=== PATIENT | male | born 1965 ===

== ENCOUNTER 2024-05-22 13:06 | Inpatient (IN) | payer MEDICARE, MEDICAID, SELFPAY ==
[2024-05-22 13:20] VITALS: BP 140/90; BP 166/100; PULSE 100; PULSE 95; RESP 16; TEMP 36.9; O2SAT 93; O2SAT 96; BMI 29.7
[2024-05-22 13:41] LABS: Appearance Urine Clear; Color Urine Yellow; Glucose Urine UA Negative (Negative); Leukocyte Esterase Urine Negative (Negative); Nitrite Urine Negative (Negative); Specific Gravity - Urine <= 1.005 (1.005-1.025); Urine Blood Negative (Negative); Urine Ketones Trace mg/dL (Negative); Urine Protein Negative (Neg-Trace)
[2024-05-22 13:50] LABS: Amphetamine Screen Urine Not Detected (Not Detect); Barbiturates, Urine Not Detected (Not Detect); Benzodiazepines Screen Urine Not Detected (Not Detect); Buprenorphine Scr Not Detected (Not Detect); Cannabinoid Screen Urine POSITIVE (Not Detect); Cocaine Screen Urine Not Detected (Not Detect); Fentanyl, urine Not Detected (Not Detect); Methadone Screen, Urine Not Detected (Not Detect); Opiate Screen Urine Not Detected (Not Detect); Oxycodone Screen Urine Not Detected (Not Detect); Phencyclidine Screen Urine Not Detected (Not Detect)
[2024-05-22 13:57] LABS: MANUAL DIFF FLAG NO
[2024-05-22] MEDS: PHENobarbitaL sodium 130 MG/ML IM ONCE 340 MG IM (13:57)
[2024-05-22 13:59] LABS: Basophils Absolute Auto 0.1 X10*3/uL (0.0-0.2); Eosinophils Absolute Auto 0.1 X10*3/uL (0.0-0.4); Eosinophils Percent Auto 1.7 % (0-4); Hematocrit 48.8 % (42.0-52.0); Hemoglobin 17.5 g/dl (14.0-18.0); Imm Gran Abs Auto 0.04 X10*3/uL (0.00-0.03); Imm Gran Pct Auto 0.6 % (0.0-0.4); Lymphocytes Absolute Auto 2.7 X10*3/uL (1.2-4.9); Lymphocytes Percent Auto 42.8 % (20-40); Mean Corpuscular HGB Conc 35.9 g/dl (31.0-36.0); Mean Corpuscular Hemoglobin 35.6 pg (27.0-33.0); Mean Corpuscular Volume 99.4 fL (80.0-98.0); Mean Platelet Volume 9.4 fL (9.4-12.4); Monocytes Absolute Auto 0.8 X10*3/uL (0.1-1.2); Neutrophils Absolute Auto 2.6 x10*3/uL (2.0-8.3); Neutrophils Percent Auto 41.9 % (45-73); Platelet Count 185 X10*3/uL (160-400); Red Blood Count 4.91 X10*6/uL (4.60-5.80); Red Cell Distribution Width 13.5 % (11.0-16.0); White Blood Count 6.3 X10*3/uL (4.8-10.8)
[2024-05-22 14:00] VITALS: BP 137/87; PULSE 93; RESP 24; TEMP 37; O2SAT 95
--- NOTE | 2024-05-22 14:21 | ED.PSYCH ---
HPI - Psych General Chief Complaint: ETOH/Substance Use Stated Complaint: SI STATEMENTS TO TILE TRIMMER TO TAKE ALL MEDS,ETOH USE Time Seen by Provider: 05/22/24 13:07 Source: patient Mode of arrival: ambulatory Limitations: no limitations History of Present Illness ED Provider: Di Peraza APRN HPI Narrative: 58-year-old male with a history of alcohol use disorder presents to the ER with complaints of suicidal thoughts with plans to overdose on his home medications. Patient reports he drinks 10-14 nips a day. He had for nips this morning prior to arrival. He denies any additional substance use. He reports about 7 days ago he did have a fall with a head strike and was seen at [facility]. He had a CT scan of his head at that time. No HI. No hallucinations. Related Data Allergies Allergy/AdvReac Type Severity Reaction Status Date / Time No Known Allergies Allergy Verified 05/22/24 13:23 Review of Systems Review of Systems: Yes all other systems are reviewed and are negative Constitutional: Constitutional: Reports no additional constitutional complaints, Denies body ache(s), Denies chills, Denies fever(s), Denies headache(s) and Denies weakness Eyes: Eyes: Reports no additional eye complaints and Denies change in vision ENT: Reports system reviewed and no additional complaints, except as documented, Denies dizziness, Denies headache(s), Denies nasal congestion, Denies nasal discharge and Denies neck pain Cardiovascular: Cardiovascular: Reports no additional cardiovascular complaints, Denies chest pain, Denies leg edema and Denies dyspnea Respiratory: Respiratory: Reports no additional respiratory complaints, Denies cough and Denies dyspnea Gastrointestinal: Gastrointestinal: Reports no additional gastrointestinal complaints, Denies abdominal pain, Denies diarrhea, Denies nausea and Denies vomiting Genitourinary: Genitourinary: Denies urinary incontinence Musculoskeletal: Musculoskeletal: Reports no additional musculoskeletal complaints, Denies back pain, Denies arthralgias, Denies joint swelling, Denies neck pain, Denies numbness and Denies tingling Integumentary/Breasts: Skin/Breast: Reports system reviewed and no additional complaints, except as docu and Denies rash Neurologic: Reports system reviewed and no additional complaints, except as documented, Denies Abnormal speech present, Denies dizziness, Denies headache(s), Denies numbness, Denies tingling and Denies weakness Psychiatric: Psychiatric: Denies homicidal ideation and Reports suicidal ideation [facility] Past Medical History Attestation statement: The following information was validated with the patient. Source: old records reviewed and nursing notes reviewed Social History Social History Alcohol intake: current Alcohol intake frequency: 3 or more drinks per day Alcohol type: hard liquor Smoked in Last 30 Days: Yes Use of substances other than those prescribed or required for medical reasons: Yes Substance Use Type: Marijuana Substance Use Frequency: Weekly Last Used Substance: Hours (ago) Any prior treatment program specific to substance use: No Advance Directives: No Advance Directives Information Provided: No Physical Exam Vital Signs: Vital Signs: Last Vital Signs Temp 98.6 F 05/22/24 14:00 Pulse 93 05/22/24 14:00 Resp 24 H 05/22/24 14:00 BP 137/87 05/22/24 14:00 Pulse Ox 95 05/22/24 14:00 O2 Del Method Room Air 05/22/24 14:00 BMI result Body Mass Index 29.7 Const: General: cooperative, healthy appearing, comfortable and no acute distress Orientation/consciousness: patient oriented x3 Limitations: no limitations HEENT: Head: Yes normal to inspection, No Carpenter's sign and No raccoon eyes Ears: hearing grossly normal bilaterally and TM's normal bilaterally General nose exam: Normal external nose present Face and sinus: Yes normal facial exam Mouth: Normal oral and palatal mucosa present Throat: Yes posterior oropharynx normal Eyes: General: appearance normal, both eyes and all related structures Pupils: Equal, round and reactive pupils present Neck: Neck: Yes normal visual inspection and Yes full ROM Chest: Chest palpation & inspection: normal inspection of the chest Resp: Effort & Inspection: normal respiratory effort Auscultation: clear to auscultation bilaterally Cardio: Rate: regular rate Rhythm: regular rhythm Peripheral pulses: Peripheral pulses 2+ throughout GI: Inspection: Yes normal to inspection Palpation (GI): Soft to palpation and nontender Auscultation: normal bowel sounds Back/Spine/Pelvis: Thoracic/Lumbar Spine: thoracic and lumbar spine normal to inspection Skin: General skin exam: no rashes or lesions noted Neuro: General: patient oriented x3, moves all extremities, no focal motor deficits and normal sensation to monofilament Cranial nerves: Yes CN's II-XII intact bilaterally, Yes Equal, round and reactive pupils present, Yes Bilaterally intact EOM present, Yes Nystagmus not present, Yes Normal facial strength present and Yes Midline tongue present Cognition (Neuro): normal cognition Speech: No Abnormal speech present Gait exam (Neuro): Normal gait present Motor exam (neuro): 5/5 motor strength present throughout Sensory Exam: Normal double simultaneous stimulation for sensation Extrem: General: Yes normal to inspection Course Course Course Narrative: 1400-nursing tells me the patient's initial CIWA was 21. I did order phenobarbital protocol. He reports he has had an admission for alcohol withdrawal but this was many years ago. No history of alcohol withdrawal seizures. He will be brought to the main emergency room to be monitored Reevaluation(s) Reevaluation #1: 1530-CIWA now 3. Nursing will Ctm. Crisis consult placed Medications Administered Discontinued Medications Generic Name Dose Route Start Last Admin Trade Name Freq PRN Reason Stop Dose Admin Phenobarbital Sodium 340 mg 05/22/24 14:00 05/22/24 13:57 Phenobarbital Sodium 130 Mg/Ml Im Once IM 05/22/24 14:01 340 mg ONCE ONE Administration Protocol Medical Decision Making Medical Decision Making [facility] Narrative: 58-year-old male with a history of alcohol use disorder presents to the ER with complaints of suicidal thoughts with plans to overdose on his home medications. Patient reports he drinks 10-14 nips a day. He had for nips this morning prior to arrival. He denies any additional substance use. He reports about 7 days ago he did have a fall with a head strike and was seen at [facility]. He had a CT scan of his head at that time. No HI. No hallucinations. Normal neuro exam with no focal deficits. No concern for acute ingestion or trauma. Vitals are stable. We will get the records from [facility]. Will need CIWA, labs, drug screen Once medically cleared will need a crisis evaluation Differential Diagnosis Differential Diagnoses: The differential diagnosis associated with the presentation includes Alcohol use disorder, depression Admission/Observation Consideration of admission/observation: Escalation of care including admission/observation considered Consult Healthcare Provider Management of the patient was discussed with: Behavioral Health Provider Lab Data [facility] Lab Attestation statement: I reviewed the patient's lab results. 05/22/24 13:49 05/22/24 13:49 Labs: Lab Results 05/22/24 05/22/24 Range/Units 13:31 13:49 WBC 6.3 (4.8-10.8) X10*3/uL RBC 4.91 (4.60-5.80) X10*6/uL Hgb 17.5 (14.0-18.0) g/dl Hct 48.8 (42.0-52.0) % MCV 99.4 H (80.0-98.0) fL MCH 35.6 H (27.0-33.0) pg MCHC 35.9 (31.0-36.0) g/dl RDW 13.5 (11.0-16.0) % Plt Count 185 (160-400) X10*3/uL MPV 9.4 (9.4-12.4) fL Immature Gran % (Auto) 0.6 H (0.0-0.4) % Neut % (Auto) 41.9 L (45-73) % Lymph % (Auto) 42.8 H (20-40) % Delta % (Auto) 12.0 H (2-11) % Eos % (Auto) 1.7 (0-4) % Baso % (Auto) 1.0 (0-2) % Lymph # (Auto) 2.7 (1.2-4.9) X10*3/uL Delta # (Auto) 0.8 (0.1-1.2) X10*3/uL Eos # (Auto) 0.1 (0.0-0.4) X10*3/uL Baso # (Auto) 0.1 (0.0-0.2) X10*3/uL Abs Immat Gran (auto) 0.04 H (0.00-0.03) X10*3/uL Absolute Neuts (auto) 2.6 (2.0-8.3) x10*3/uL Absolute Nucleated RBC 0.000 (0.0-0.012) X10*3/uL Nucleated RBC % (auto) 0.0 (0.0-0.2) /100WBC Sodium 140 (135-145) mmol/L Potassium 3.5 (3.3-5.1) mmol/L Chloride 102 (96-108) mmol/L Carbon Dioxide 21 L (22-29) mmol/L Anion Gap 21 H (12-20) BUN 5 L (9-16) mg/dL Creatinine 0.81 (0.5-1.4) mg/dL Estim Creat Clear Calc 112.2 Estimated GFR > 60 Random Glucose 125 H (60-115) mg/dL Calcium 8.8 (8.4-10.2) mg/dL Magnesium 2.1 (1.6-2.6) mg/dL Total Bilirubin 1.0 (0.0-1.0) mg/dL Direct Bilirubin 0.5 (0.0-0.5) mg/dL AST 160 H (5-37) U/L ALT 104 H (0-40) U/L Alkaline Phosphatase 81 (39-117) U/L Total Protein 7.4 (6.5-8.0) g/dL Albumin 4.4 (3.5-5.0) g/dL Urine Color Yellow Urine Appearance Clear Urine pH 7.0 (5.0-9.0) Ur Specific [place] <= 1.005 (1.005-1.025) Urine Protein Negative (Neg-Trace) mg/dL Urine Glucose (UA) Negative (Negative) mg/dL Urine Ketones Trace (Negative) mg/dL Urine Blood Negative (Negative) Urine Nitrite Negative (Negative) Ur Leukocyte Esterase Negative (Negative) Salicylates < 5.0 L (15-30) mg/dL Urine Opiates Screen Not Detected (Not Detect) Ur Buprenorphine Scrn Not Detected (Not Detect) ng/mL Ur Oxycodone Screen Not Detected (Not Detect) ng/mL Urine Methadone Screen Not Detected (Not Detect) ng/mL Urine Fentanyl Screen Not Detected (Not Detect) Acetaminophen < 3 (<30) mcg/mL Ur Barbiturates Screen Not Detected (Not Detect) Ur Phencyclidine Scrn Not Detected (Not Detect) Ur Amphetamines Screen Not Detected (Not Detect) U Benzodiazepines Scrn Not Detected (Not Detect) Urine Cocaine Screen Not Detected (Not Detect) U Marijuana (THC) Screen POSITIVE H (Not Detect) Ethyl Alcohol 282 mg/dL Independent Historian Clinical information obtained from an independent historian. History obtained from or confirmed by: EMS External Record Review External record reviewed: Outside ED record Reviewed CT head and cervical spine from [facility] ER visit 2023 which is unremarkable Discharge Plan Discharge Clinical Impression: Alcohol use disorder Patient Disposition: Still a Patient Print Language: Spanish
[2024-05-22 14:43] LABS: Acetaminophen LAB < 3 mcg/mL (<30); Salicylate < 5.0 mg/dL (15-30)
[2024-05-22 14:44] LABS: Alanine Aminotransferase 104 U/L (0-40); Albumin Level 4.4 g/dL (3.5-5.0); Alkaline Phosphatase 81 U/L (39-117); Anion Gap 21 (12-20); Aspartate Amino Transferase 160 U/L (5-37); Bilirubin Direct 0.5 mg/dL (0.0-0.5); Blood Urea Nitrogen 5 mg/dL (9-16); Calcium 8.8 mg/dL (8.4-10.2); Carbon Dioxide 21 mmol/L (22-29); Chloride 102 mmol/L (96-108); Creatinine Clr Calc Pharmacy 112.2; Estimated Glomerular Filt Rate > 60; Ethanol 282 mg/dL; Glucose Random 125 mg/dL (60-115); Magnesium 2.1 mg/dL (1.6-2.6); Potassium 3.5 mmol/L (3.3-5.1); Sodium 140 mmol/L (135-145); Total Protein 7.4 g/dL (6.5-8.0)
--- NOTE | 2024-05-22 16:11 | PC.NURSE ---
Patient currently sitting on bed in 4, offering no complaints to this RN. Pt aware of plan for phenobarb protocol. Pt endorses SI with plan to overdose on his home medications
[2024-05-22 16:38] VITALS: BP 151/105; PULSE 112; RESP 18; TEMP 36.8; O2SAT 94
[2024-05-22] MEDS: PHENobarbitaL sodium 130 MG/ML VIAL IM Q3Hx2 255 MG IM ×2 (18:02→20:39)
[2024-05-22 19:01] VITALS: BP 143/95; PULSE 114; RESP 18; TEMP 37.1; O2SAT 93
--- NOTE | 2024-05-22 19:25 | PC.NURSE ---
patient appears to remain at rest presently respirations are even and unlabored patient appears in no distress...
[2024-05-22] MEDS: traZODone HCL 100 MG TABLET 300 MG PO (20:38)
[2024-05-22] MEDS: QUEtiapine Fumarate 300 MG TABLET 600 MG PO (20:38)
[2024-05-22] MEDS: Gabapentin 300 MG CAPSULE PO (20:38)
[2024-05-22] MEDS: clonazePAM 1 MG TABLET PO (20:48)
--- NOTE | 2024-05-22 23:02 | MHC.CARE ---
T/W attempted to meet with the pt at approx 2300. Pt would not wake for the assessment. T/W then looked at the medications that the pt was given at approx 2030. It was no wonder the pt would not wake. CARE Team will assess the pt in the AM.
--- NOTE | 2024-05-23 | ECG_ITS ---
Test Reason : CHECK FOR PROLONGED QT Blood Pressure : / mmHG Vent. Rate : 101 BPM Atrial Rate : 101 BPM P-R Int : 166 ms QRS Dur : 092 ms QT Int : 356 ms P-R-T Axes : 046 078 060 degrees QTc Int : 461 ms Sinus tachycardia Otherwise normal ECG No previous ECGs available Referred By: Generic ED Physician Electronically Signed By:HAMMAD ALONSO
[2024-05-23 05:12] VITALS: BP 161/110; PULSE 114; RESP 18; TEMP 36.9; O2SAT 93
--- NOTE | 2024-05-23 06:24 | PC.NURSE ---
notified provider via tiger in regards to last vital signs in case provider wanted elevated values given.
--- NOTE | 2024-05-23 06:25 | PC.NURSE ---
medication given to address VS. (cont'd from previous note).
[2024-05-23] MEDS: Omeprazole 20 MG CAPSULE.DR PO (08:13)
[2024-05-23] MEDS: Gabapentin 300 MG CAPSULE PO (08:13)
[2024-05-23] MEDS: PHENobarbitaL 15 MG TABLET 45 MG PO ×2 (08:13→21:51)
[2024-05-23] MEDS: QUEtiapine Fumarate 100 MG TABLET PO (08:13)
--- NOTE | 2024-05-23 08:49 | MHC.CARE ---
Pt meets the criteria for IPLOC at this time per collateral contacts. Will be placed on Section 12a for safety.
[2024-05-23 09:42] VITALS: BP 127/96; PULSE 101; RESP 14; TEMP 37.3; O2SAT 96
--- NOTE | 2024-05-23 12:18 | PC.NURSE ---
ASSUMED CARE OF PT AT 1100H, HE HAS BEEN SLEEPING, RESTING COMFORTABLY IN NAD. DENIES ANY PAIN, NO WD SX AT THIS TIME. CIWA 1. C/O MINIMAL NAUSEA, DID NOT EAT BREAKFAST THIS AM. PT IS A SEC 12 BY ED PROVIDER WITH CARE TEAM. AWAITING INPT BED.
--- NOTE | 2024-05-23 13:27 | PC.NURSE ---
ADMISSIONS REQUESTING ANTIHYPERTENSIVE ORDER FROM THE ED. BP HAS STABILIZED SINCE THIS AM, HE DOES NOT HAVE A HX OF HTN, AND IS NOT CURRENTLY ON ANTIHYPERTENSIVES OUTPT. ADMISSIONS MADE AWARE. ED MD NOTIFIED OF THEIR REQUEST PRIOR TO ADMISSION.
[2024-05-23 13:39] VITALS: BP 153/111; PULSE 89; RESP 16; TEMP 36.7; O2SAT 98
[2024-05-23] MEDS: lisinopriL 10 MG TABLET PO (13:40)
[2024-05-23] MEDS: clonazePAM 1 MG TABLET PO ×3 (13:52→22:42)
--- NOTE | 2024-05-23 14:59 | PC.NURSE ---
BP HAS IMPROVED
--- NOTE | 2024-05-23 14:59 | PC.NURSE ---
MOTHER [phone]
[2024-05-23 16:50] VITALS: BP 111/87; PULSE 101; RESP 20; TEMP 36.8; O2SAT 93; BMI 29.5
--- NOTE | 2024-05-23 17:43 | PC.ADMIT ---
This is the 1st admission for this 58 y.o.male to this [facility] at [facility]. Referred by [facility] Care Team with Dx: Unspecified, Depressive D/O, Alcohol Use D/O Severe. Nurse to nurse done prior to admission. Arrived on unit at 1555 on Sect 12A and placed on 15 min safety checks. Signed CV after meeting with prescriber, Ofelia Flores. Hx multiple behavioral health and substance hospitalizations. Precipitating events to admission: brought in by ambulance 05/22/24 to [facility] ED due to calling [employer] crisis stating he was suicidal with a plan to overdose oh his home meds. Intoxicated with etoh at time of call. Pt reports he is always intoxicated, drinking 1 gallon of 80 proof vodka daily. Pt currently prescribed Phenobarb taper for withdrawal and has Klonopin prn. CIWA results 8 at 1652, Ofelia Flores notified. Diaphoretic, mild hand tremors, sensitivity to light, nausea. Klonopin 1mg po given at 1723 per provider. Reported good effect from Klonopin given in ED. Medical issues: HTN, ? due to withdrawal, Asthma Reports recent fall-striking head 05/07/24 with various scrapes/bruises noted on body. Tox screen positive for marijuana, etoh 282 05/22/23 at 1349. Pt cooperative during admission process. Reports experiencing agoraphobia for years. Reports memory issues, possibly related to etoh use. Denies current SI/HI, denies AH/VH. Rates depression and anxiety #4 on scale 1-10(10 worse). VS at time of admission: 98.3-101-20 111/87 O2 sat 93% rm air. Skin check/electronic data interchange specialist done at time of admission with 2 staff members present. Reports poor appetite due to nausea recently. Admission orders received from Ofelia Flores. Meds verified by ED staff.
[2024-05-23 20:00] VITALS: BP 140/88; PULSE 102; RESP 18; TEMP 36.5; O2SAT 97
[2024-05-23 22:15] VITALS: BP 117/83; PULSE 96; RESP 17; O2SAT 94
[2024-05-23] MEDS: QUEtiapine Fumarate 300 MG TABLET 600 MG PO (22:37)
[2024-05-23] MEDS: traZODone HCL 100 MG TABLET 300 MG PO (22:37)
[2024-05-23] MEDS: Milk of Magnesia 30 ML ORAL.SUSP PO (22:43)
[2024-05-24] MEDS: traZODone HCL 50 MG TABLET PO ×2 (00:08→01:54)
[2024-05-24 01:50] VITALS: BP 141/77; PULSE 113; RESP 16; O2SAT 94
[2024-05-24] MEDS: Acetaminophen 325 MG TABLET 650 MG PO ×2 (01:53→12:38)
[2024-05-24] MEDS: hydrOXYzine HCL 25 MG TABLET PO ×2 (01:54→12:37)
[2024-05-24 08:00] VITALS: BP 117/72; PULSE 113; RESP 18; TEMP 37.1; O2SAT 95
[2024-05-24 08:28] LABS: Alanine Aminotransferase 63 U/L (0-40); Albumin Level 3.7 g/dL (3.5-5.0); Alkaline Phosphatase 68 U/L (39-117); Anion Gap 12 (12-20); Aspartate Amino Transferase 73 U/L (5-37); Bilirubin Total 1.4 mg/dL (0.0-1.0); Blood Urea Nitrogen 11 mg/dL (9-16); Calcium 8.5 mg/dL (8.4-10.2); Carbon Dioxide 30 mmol/L (22-29); Chloride 97 mmol/L (96-108); Cholesterol 216 mg/dL (<200); Creatinine Clr Calc Pharmacy 93.4; Estimated Glomerular Filt Rate > 60; Glucose Fasting 135 mg/dL (60-99); HDL Cholesterol 77 mg/dL (>40); LDL Cholesterol Calculated 110 mg/dL (<100); Potassium 3.5 mmol/L (3.3-5.1); Sodium 135 mmol/L (135-145); Total Protein 6.1 g/dL (6.5-8.0); Triglycerides 146 mg/dL (<150)
[2024-05-24] MEDS: Omeprazole 20 MG CAPSULE.DR PO (08:45)
[2024-05-24] MEDS: Thiamine HCL 100 MG TABLET PO (08:45)
[2024-05-24] MEDS: PHENobarbitaL 15 MG TABLET 45 MG PO ×2 (08:45→22:10)
[2024-05-24] MEDS: Multivitamin TABLET 1 TAB PO (08:45)
[2024-05-24] MEDS: Folic Acid 1 MG TABLET PO (08:46)
[2024-05-24] MEDS: Gabapentin 300 MG CAPSULE PO (08:46)
[2024-05-24] MEDS: QUEtiapine Fumarate 100 MG TABLET PO (08:46)
[2024-05-24] MEDS: clonazePAM 1 MG TABLET PO ×3 (08:49→22:15)
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
[2024-05-24 20:00] VITALS: BP 144/80; PULSE 85; RESP 18; TEMP 36.9; O2SAT 94
[2024-05-24] MEDS: traZODone HCL 100 MG TABLET 300 MG PO (22:11)
[2024-05-24] MEDS: QUEtiapine Fumarate 300 MG TABLET 600 MG PO (22:11)
[2024-05-24 22:13] VITALS: BP 154/98; PULSE 86; RESP 16
[2024-05-25 00:06] VITALS: RESP 14
--- NOTE | 2024-05-25 00:07 | PC.NURSE ---
CIWA done at 0005. patient's RR-14. No physical signs of withdrawal noted at this time. CIWA score = 0
--- NOTE | 2024-05-25 04:08 | PC.NURSE ---
Will is not showing any physical signs of withdrawal at this time. Patient RR-16. CIWA score currently = 0
[2024-05-25] MEDS: Omeprazole 20 MG CAPSULE.DR PO (06:30)
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
[2024-05-25] MEDS: Thiamine HCL 100 MG TABLET PO (09:28)
[2024-05-25] MEDS: Folic Acid 1 MG TABLET PO (09:28)
[2024-05-25] MEDS: Multivitamin TABLET 1 TAB PO (09:29)
[2024-05-25] MEDS: QUEtiapine Fumarate 100 MG TABLET PO (09:29)
[2024-05-25] MEDS: PHENobarbitaL 30 MG TABLET PO ×2 (09:29→22:14)
--- NOTE | 2024-05-25 13:01 | MHC.RECOVRN ---
AUDIT-C Brief Intervention Pt had positive screen for unhealthy alcohol use on admission, subsequently met with t/w to discuss alcohol use and recovery supports/options. Pt voices concern regarding alcohol use and is aware that drinking at unhealthy levels is known to increase risk of alcohol related health problems. Pt reports 1.75 liters vodka daily x 2 weeks. Prior to 2 weeks ago pt had been drinking less. Pt expresses how alcohol use has impacted health, including negative impact on overall health and wellbeing. Discussed risk reduction strategies including drinking below the recommended limit. Pt reports he has had periods in recovery, most recently 5 years approx 3 years ago. Provided pt with written resources including information on inpatient and outpatient treatment, LYNN, harm reduction, and recovery coaching. Pt would like to initiate naltrexone, has not tried LYNN in the past. Pt would like to have PCP prescribe after discharge. Pt provided with t/w contact information if questions or concerns arise. Denies other questions or concerns at this time.
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
[2024-05-25] MEDS: Acetaminophen 325 MG TABLET 650 MG PO (15:50)
[2024-05-25] MEDS: clonazePAM 1 MG TABLET PO ×2 (15:51→22:18)
--- NOTE | 2024-05-25 18:27 | PC.NURSE ---
Pt was observed to be unsteady on his feet. Vitals: 173/105, HR 88, O2 95%. Dr. Pimentel notified. Clonidine 0.1mg PO one time ordered. Pt denied chest pain or discomfort, pt denied dizziness/nausea. Pt reported generalized muscle pain.
[2024-05-25 18:29] VITALS: BP 173/105; PULSE 88; O2SAT 95
[2024-05-25] MEDS: cloNIDine HCL 0.1 MG TABLET PO ×2 (18:31→22:43)
[2024-05-25 19:30] VITALS: BP 144/83; PULSE 87
[2024-05-25 20:00] VITALS: BP 129/86; PULSE 84; RESP 16; TEMP 37; O2SAT 97
[2024-05-25] MEDS: QUEtiapine Fumarate 300 MG TABLET 600 MG PO (22:14)
[2024-05-25] MEDS: traZODone HCL 100 MG TABLET 300 MG PO (22:15)
[2024-05-25] MEDS: Gabapentin 300 MG CAPSULE PO (22:15)
[2024-05-25 22:22] VITALS: BP 168/98; PULSE 88; RESP 16
[2024-05-26 00:32] VITALS: BP 140/85; PULSE 69; RESP 16
[2024-05-26] MEDS: Omeprazole 20 MG CAPSULE.DR PO (06:08)
[2024-05-26 07:00] VITALS: BMI 30.2
[2024-05-26 08:00] VITALS: BP 129/81; PULSE 68; RESP 14; TEMP 36.5; O2SAT 94
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
[2024-05-26] MEDS: PHENobarbitaL 30 MG TABLET PO ×2 (08:46→22:51)
[2024-05-26] MEDS: QUEtiapine Fumarate 100 MG TABLET PO (08:46)
[2024-05-26] MEDS: Multivitamin TABLET 1 TAB PO (08:46)
[2024-05-26] MEDS: Thiamine HCL 100 MG TABLET PO (08:46)
[2024-05-26] MEDS: Naltrexone HCl 50 MG TABLET PO (08:46)
[2024-05-26] MEDS: Folic Acid 1 MG TABLET PO (08:46)
[2024-05-26] MEDS: Acetaminophen 325 MG TABLET 650 MG PO ×2 (09:14→17:18)
[2024-05-26] MEDS: clonazePAM 1 MG TABLET PO ×3 (09:14→22:56)
[2024-05-26 18:14] LABS: MANUAL DIFF FLAG NO
[2024-05-26 18:26] LABS: Basophils Absolute Auto 0.1 X10*3/uL (0.0-0.2); Basophils Percent Auto 0.8 % (0-2); Eosinophils Absolute Auto 0.3 X10*3/uL (0.0-0.4); Hematocrit 42.8 % (42.0-52.0); Hemoglobin 15.4 g/dl (14.0-18.0); Imm Gran Abs Auto 0.07 X10*3/uL (0.00-0.03); Imm Gran Pct Auto 1.1 % (0.0-0.4); Lymphocytes Absolute Auto 1.4 X10*3/uL (1.2-4.9); Lymphocytes Percent Auto 21.2 % (20-40); Mean Corpuscular Hemoglobin 36.4 pg (27.0-33.0); Mean Corpuscular Volume 101.2 fL (80.0-98.0); Mean Platelet Volume 10.2 fL (9.4-12.4); Monocytes Absolute Auto 0.9 X10*3/uL (0.1-1.2); Monocytes Percent Auto 13.6 % (2-11); Neutrophils Absolute Auto 3.9 x10*3/uL (2.0-8.3); Neutrophils Percent Auto 59.3 % (45-73); Platelet Count 159 X10*3/uL (160-400); Red Blood Count 4.23 X10*6/uL (4.60-5.80); Red Cell Distribution Width 13.1 % (11.0-16.0); White Blood Count 6.6 X10*3/uL (4.8-10.8)
[2024-05-26 18:39] LABS: Blood Urea Nitrogen 11 mg/dL (9-16)
[2024-05-26 18:41] LABS: Alanine Aminotransferase 78 U/L (0-40); Alkaline Phosphatase 88 U/L (39-117); Anion Gap 10 (12-20); Aspartate Amino Transferase 64 U/L (5-37); Bilirubin Direct 0.3 mg/dL (0.0-0.5); Bilirubin Total 0.6 mg/dL (0.0-1.0); Blood Urea Nitrogen 11 mg/dL (9-16); Calcium 9.3 mg/dL (8.4-10.2); Carbon Dioxide 26 mmol/L (22-29); Chloride 105 mmol/L (96-108); Creatinine Clr Calc Pharmacy 110.4; Estimated Glomerular Filt Rate > 60; Glucose Random 132 mg/dL (60-115); Potassium 3.6 mmol/L (3.3-5.1); Sodium 137 mmol/L (135-145); Total Protein 6.8 g/dL (6.5-8.0)
[2024-05-26 19:46] LABS: Ammonia 40 umol/L (13-55)
[2024-05-26 21:00] VITALS: BP 149/97; PULSE 73; RESP 16; TEMP 36.1; O2SAT 99
[2024-05-26] MEDS: Gabapentin 300 MG CAPSULE PO (22:51)
[2024-05-26 22:55] VITALS: BP 158/98; PULSE 75; RESP 16; TEMP 36.8; O2SAT 95
[2024-05-26] MEDS: QUEtiapine Fumarate 300 MG TABLET 600 MG PO (22:55)
[2024-05-26] MEDS: traZODone HCL 100 MG TABLET 300 MG PO (22:56)
[2024-05-26] MEDS: traZODone HCL 50 MG TABLET PO (22:56)
[2024-05-27] MEDS: Omeprazole 20 MG CAPSULE.DR PO (06:18)
[2024-05-27 07:40] VITALS: BP 133/82; PULSE 75; RESP 16; TEMP 36.8; O2SAT 94
[2024-05-27 08:00] VITALS: BP 133/82; PULSE 75; RESP 16; TEMP 36.8; O2SAT 94
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
[2024-05-27] MEDS: Thiamine HCL 100 MG TABLET PO (08:49)
[2024-05-27] MEDS: Multivitamin TABLET 1 TAB PO (08:49)
[2024-05-27] MEDS: PHENobarbitaL 30 MG TABLET PO (08:49)
[2024-05-27] MEDS: Folic Acid 1 MG TABLET PO (08:49)
[2024-05-27] MEDS: Naltrexone HCl 50 MG TABLET PO (08:49)
[2024-05-27] MEDS: QUEtiapine Fumarate 100 MG TABLET PO (08:49)
[2024-05-27] MEDS: Hydrocortisone 1 % Cream 28.35 GM TUBE 1 APPL TOPICAL (13:15)
[2024-05-27] MEDS: clonazePAM 1 MG TABLET PO ×2 (15:23→22:57)
[2024-05-27 20:00] VITALS: BP 155/91; PULSE 77; RESP 18; TEMP 36.7; O2SAT 99
[2024-05-27] MEDS: traZODone HCL 100 MG TABLET 300 MG PO (22:56)
[2024-05-27] MEDS: QUEtiapine Fumarate 300 MG TABLET 600 MG PO (22:56)
[2024-05-27] MEDS: Gabapentin 300 MG CAPSULE PO (22:56)
[2024-05-27] MEDS: traZODone HCL 50 MG TABLET PO (22:57)
[2024-05-28] MEDS: Omeprazole 20 MG CAPSULE.DR PO (06:56)
[2024-05-28 08:45] VITALS: BP 147/85; PULSE 76; RESP 16; TEMP 36.5; O2SAT 96
[2024-05-28] MEDS: Naltrexone HCl 50 MG TABLET PO (08:47)
[2024-05-28] MEDS: QUEtiapine Fumarate 100 MG TABLET PO (08:47)
[2024-05-28] MEDS: Multivitamin TABLET 1 TAB PO (08:47)
[2024-05-28] MEDS: Folic Acid 1 MG TABLET PO (08:47)
[2024-05-28] MEDS: Thiamine HCL 100 MG TABLET PO (08:47)
[2024-05-28] MEDS: PHENobarbitaL 30 MG TABLET PO (08:47)
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
[2024-05-28] MEDS: clonazePAM 1 MG TABLET PO ×2 (16:03→22:45)
[2024-05-28] MEDS: Hydrocortisone 1 % Cream 28.35 GM TUBE 1 APPL TOPICAL (16:37)
[2024-05-28 18:23] VITALS: BP 174/98; PULSE 94; RESP 16; TEMP 36.6; O2SAT 97
[2024-05-28] MEDS: QUEtiapine Fumarate 300 MG TABLET 600 MG PO (22:45)
[2024-05-28] MEDS: traZODone HCL 50 MG TABLET PO (22:45)
[2024-05-28] MEDS: Gabapentin 300 MG CAPSULE PO (22:45)
[2024-05-28] MEDS: traZODone HCL 100 MG TABLET 300 MG PO (22:45)
[2024-05-29] MEDS: Omeprazole 20 MG CAPSULE.DR PO (06:57)
[2024-05-29 09:22] VITALS: BP 140/89; PULSE 77; RESP 16; TEMP 36.7; O2SAT 95
[2024-05-29] MEDS: Folic Acid 1 MG TABLET PO (09:23)
[2024-05-29] MEDS: Thiamine HCL 100 MG TABLET PO (09:23)
[2024-05-29] MEDS: QUEtiapine Fumarate 100 MG TABLET PO (09:23)
[2024-05-29] MEDS: Multivitamin TABLET 1 TAB PO (09:23)
[2024-05-29] MEDS: Naltrexone HCl 50 MG TABLET PO (09:23)
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
[2024-05-29] MEDS: Hydrocortisone 1 % Cream 28.35 GM TUBE 1 APPL TOPICAL (13:48)
[2024-05-29] MEDS: clonazePAM 1 MG TABLET PO ×2 (14:59→22:38)
[2024-05-29] MEDS: Acetaminophen 325 MG TABLET 650 MG PO (17:55)
[2024-05-29 20:00] VITALS: BP 149/94; PULSE 70; RESP 16; TEMP 36.4; O2SAT 98
[2024-05-29] MEDS: QUEtiapine Fumarate 300 MG TABLET 600 MG PO (22:37)
[2024-05-29] MEDS: Gabapentin 300 MG CAPSULE PO (22:37)
[2024-05-29] MEDS: traZODone HCL 100 MG TABLET 300 MG PO (22:37)
[2024-05-30 08:15] VITALS: BP 115/66; PULSE 73; RESP 14; TEMP 36.8; O2SAT 94
[2024-05-30] MEDS: Omeprazole 20 MG CAPSULE.DR PO (08:51)
[2024-05-30] MEDS: Thiamine HCL 100 MG TABLET PO (08:51)
[2024-05-30] MEDS: QUEtiapine Fumarate 100 MG TABLET PO (08:51)
[2024-05-30] MEDS: Folic Acid 1 MG TABLET PO (08:52)
[2024-05-30] MEDS: Naltrexone HCl 50 MG TABLET PO (08:52)
[2024-05-30] MEDS: Multivitamin TABLET 1 TAB PO (08:52)
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
[2024-05-30] MEDS: Hydrocortisone 1 % Cream 28.35 GM TUBE 1 APPL TOPICAL (12:30)
[2024-05-30] MEDS: clonazePAM 1 MG TABLET PO ×2 (15:33→22:45)
[2024-05-30 20:00] VITALS: BP 156/85; PULSE 92; RESP 16; TEMP 36.7; O2SAT 99
[2024-05-30] MEDS: traZODone HCL 100 MG TABLET 300 MG PO (22:44)
[2024-05-30] MEDS: QUEtiapine Fumarate 300 MG TABLET 600 MG PO (22:45)
[2024-05-30] MEDS: Gabapentin 300 MG CAPSULE PO (22:45)
[2024-05-31] MEDS: Omeprazole 20 MG CAPSULE.DR PO (08:48)
[2024-05-31] MEDS: Naltrexone HCl 50 MG TABLET PO (08:48)
[2024-05-31] MEDS: QUEtiapine Fumarate 100 MG TABLET PO (08:49)
[2024-05-31] MEDS: Multivitamin TABLET 1 TAB PO (08:49)
[2024-05-31] MEDS: Folic Acid 1 MG TABLET PO (08:49)
[2024-05-31] MEDS: Thiamine HCL 100 MG TABLET PO (08:49)
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
[2024-05-31] MEDS: Hydrocortisone 1 % Cream 28.35 GM TUBE 1 APPL TOPICAL (13:32)
[2024-05-31] MEDS: clonazePAM 1 MG TABLET PO ×2 (15:36→22:45)
[2024-05-31 20:00] VITALS: BP 137/92; PULSE 79; RESP 16; TEMP 36.7; O2SAT 97
[2024-05-31] MEDS: Gabapentin 300 MG CAPSULE PO (22:40)
[2024-05-31] MEDS: traZODone HCL 100 MG TABLET 300 MG PO (22:40)
[2024-05-31] MEDS: QUEtiapine Fumarate 300 MG TABLET 600 MG PO (22:41)
[2024-06-01 08:00] VITALS: BP 120/74; PULSE 65; RESP 14; TEMP 36.3; O2SAT 96
[2024-06-01] MEDS: Naltrexone HCl 50 MG TABLET PO (08:53)
[2024-06-01] MEDS: QUEtiapine Fumarate 100 MG TABLET PO (08:53)
[2024-06-01] MEDS: Folic Acid 1 MG TABLET PO (08:53)
[2024-06-01] MEDS: Multivitamin TABLET 1 TAB PO (08:53)
[2024-06-01] MEDS: Thiamine HCL 100 MG TABLET PO (08:53)
[2024-06-01] MEDS: Omeprazole 20 MG CAPSULE.DR PO (08:53)
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
[2024-06-01] MEDS: Hydrocortisone 1 % Cream 28.35 GM TUBE 1 APPL TOPICAL (14:56)
[2024-06-01] MEDS: clonazePAM 1 MG TABLET PO ×2 (15:15→22:55)
[2024-06-01 20:00] VITALS: BP 158/87; PULSE 68; RESP 16; TEMP 36.3; O2SAT 99
[2024-06-01] MEDS: Gabapentin 300 MG CAPSULE PO (22:55)
[2024-06-01] MEDS: QUEtiapine Fumarate 300 MG TABLET 600 MG PO (22:55)
[2024-06-01] MEDS: traZODone HCL 50 MG TABLET PO (22:56)
[2024-06-01] MEDS: traZODone HCL 100 MG TABLET 300 MG PO (22:56)
[2024-06-02] MEDS: Omeprazole 20 MG CAPSULE.DR PO (06:26)
[2024-06-02 09:08] VITALS: BP 145/85; PULSE 69; RESP 16; TEMP 36.4; O2SAT 96
[2024-06-02] MEDS: Thiamine HCL 100 MG TABLET PO (09:11)
[2024-06-02] MEDS: QUEtiapine Fumarate 100 MG TABLET PO (09:11)
[2024-06-02] MEDS: Naltrexone HCl 50 MG TABLET PO (09:11)
[2024-06-02] MEDS: Naloxone HCl Nasal TAKE HOME 4 MG SPRAY 8 MG NOSTRILALT (11:02)
== END 2024-06-02 11:16 | disposition home or self-care (01) | DRG 885 ==
LOC: HO.ED 19:32 → HO.PADLT16 05-23 15:06
PROVIDERS: Emergency Medicine; Nurse Practitioner Family; Admitting Provider Registered Nurse; Emergency Provider Emergency Medicine Emergency Medical Services; Responsible Provider Registered Nurse; Visit Provider Psychiatry & Neurology Psychiatry
DX: F33.9 Major depressive disorder, recurrent, unspecified (principal); R45.851 Suicidal ideations; F17.210 Nicotine dependence, cigarettes, uncomplicated; F43.10 Post-traumatic stress disorder, unspecified; Z71.6 Tobacco abuse counseling; F11.90 Opioid use, unspecified, uncomplicated; Z62.810 Personal history of physical and sexual abuse in childhood; Y90.7 Blood alcohol level of 200-239 mg/100 ml; F10.929 Alcohol use, unspecified with intoxication, unspecified; Z56.0 Unemployment, unspecified; Z79.899 Other long term (current) drug therapy
CPT/HCPCS: 36415; 80048; 80053; 80061; 80076; 80143; 80179; 80307; 81003; 82140; 83735; 84520; 85025; 93005; 99285; J2560; S9485

== ENCOUNTER → 2024-05-23 15:03 | Outpatient (BNV) | payer MEDICARE, MEDICAID, SELFPAY | PROVIDERS: Admitting Provider Registered Nurse; Emergency Provider Emergency Medicine Emergency Medical Services; Responsible Provider Registered Nurse; Visit Provider Registered Nurse | DX: F33.2 Major depressive disorder, recurrent severe without psychotic features (principal); F43.11 Post-traumatic stress disorder, acute; F10.90 Alcohol use, unspecified, uncomplicated; F11.90 Opioid use, unspecified, uncomplicated | CPT/HCPCS: 90792; 99231; 99232; 99238 ==